=== PATIENT | female | born 1980 | race Caucasian/White ===

== ENCOUNTER 2017-01-12 21:01 | Emergency (ER) | payer OTHER ==
[2017-01-12 21:13] VITALS: BP 120/71
--- NOTE | 2017-01-12 21:18 | UC ---
Throat Pain/Nasal Brett HPI - HPI Summary HPI Summary: headache sore throat and ear pain, exudates on left tonsil - History of Current Complaint Chief Complaint: UCGeneralIllness Stated Complaint: HEADACHE,SORE THROAT,EAR PAIN Time Seen by Provider: 01/12/17 21:14 Hx Obtained From: Patient Hx Last Menstrual Period: 12/30/16 ?: No Onset/Duration: Sudden Onset, Lasting Days, Still Present Severity: Moderate Pain Intensity: 8 Pain Scale Used: 0-10 Numeric Cough: None Associated Signs & Symptoms: Positive: Negative - Allergies/Home Medications Allergies/Adverse Reactions: Allergies Allergy/AdvReac Type Severity Reaction Status Date / Time Levofloxacin [From Levaquin] Allergy See Comment Verified 01/12/17 21:13 Home Medications: Home Medications Ibuprofen TAB* [Advil TAB*] 400 mg PO Q6H PRN 01/12/17 [History Confirmed ] Naltrexone HCl-Bupropion HCl [Contrave] 2 tab PO DAILY 01/12/17 [History Confirmed 01/12/17] PMH/Surg Hx/FS Hx/Imm Hx Previously Healthy: Yes Other History Of: Negative For: HIV, Hepatitis B, Hepatitis C, Anticoagulant Therapy - Surgical History Surgical History: Yes Surgery Procedure, Year, and Place: sinus surgery, x2 - Family History Known Family History: Positive: Cardiac Disease, Hypertension, Diabetes - Social History Occupation: Employed Full-time Lives: With Family Alcohol Use: Occasionally Substance Use Type: None Smoking Status (MU): Former Smoker When Did the Patient Quit Smoking/Using Tobacco: 2011 Review of Systems Constitutional: Negative Skin: Negative Eyes: Negative ENT: Sore Throat, Ear Ache Respiratory: Negative Cardiovascular: Negative Gastrointestinal: Negative Genitourinary: Negative Motor: Negative Neurovascular: Negative Musculoskeletal: Negative Neurological: Negative Psychological: Negative All Other Systems Reviewed And Are Negative: Yes Physical Exam Triage Information Reviewed: Yes Appearance: Well-Appearing, No Pain Distress, Well-Nourished Vital Signs: Initial Vital Signs Temp 98.7 F 01/12/17 21:09 Pulse 78 01/12/17 21:09 Resp 16 01/12/17 21:09 BP 120/71 01/12/17 21:09 Pulse Ox 100 01/12/17 21:09 Vital Signs Reviewed: Yes Eye Exam: Normal Eyes: Positive: Conjunctiva Clear ENT Exam: Normal ENT: Positive: Normal ENT inspection, Hearing grossly normal, Pharynx normal, Nasal congestion, Nasal drainage, TMs normal, Tonsillar exudate Dental Exam: Normal Neck exam: Normal Neck: Positive: Supple, Nontender, No Lymphadenopathy Respiratory Exam: Normal Respiratory: Positive: Chest non-tender, Lungs clear, Normal breath sounds, No respiratory distress, No accessory muscle use Cardiovascular Exam: Normal Cardiovascular: Positive: RRR, No Murmur, Pulses Normal, Brisk Capillary Refill Musculoskeletal Exam: Normal Musculoskeletal: Positive: Strength Intact, ROM Intact, No Edema Neurological Exam: Normal Neurological: Positive: Alert, Muscle Tone Normal Psychological Exam: Normal Skin Exam: Normal Throat Pain/Nasal Course/Dx - Course Assessment/Plan: otc medication for sx relief rest increase fluids, follow with pcp - Differential Dx/Diagnosis Differential Diagnosis/HQI/PQRI: Otitis Media, Pharyngitis, Sinusitis, URI Provider Diagnoses: viral illness, exudative pharyngitis Discharge - Discharge Plan Condition: Stable Disposition: HOME Patient Education Materials: Ibuprofen (By mouth), Viral Syndrome (ED) Forms: *Work Release Referrals: [facility] [place] [facility] [place] [facility] [Outside] - If Needed
[2017-01-12] MEDS ORDERED: HYDROcodone/ACETAMIN 5-325 MG* 1 TAB PO ONE (21:43)
== END 2017-01-12 21:58 | disposition home or self-care (01) ==
LOC: UCCORT 21:01
DX: R51 Headache (principal); J02.9 Acute pharyngitis, unspecified; H92.09 Otalgia, unspecified ear; Z87.891 Personal history of nicotine dependence
CPT/HCPCS: 87651; 99212; G0463

== ENCOUNTER 2017-07-19 09:11 | Emergency (ER) | payer OTHER ==
[2017-07-19 09:39] VITALS: BP 132/72
--- OUTSIDE RECORDS SUMMARY | 2017-07-19 09:39 | XMS REPORT ---
:1980 External Reference #:[id number] Author Organization [facility] Address [address] [address] Phone [phone] Care Team Providers Name Role Phone Dylan Groves M.D. Primary Care Physician Unavailable Payers Type Date Identification Numbers Payment Provider Subscriber Commercial Effective: Policy Number: [facility] Zackery Don 2015 [id number] [place] PayID: [id number] [address] [place] [address] Medigap Part B Effective: 2013 Policy Number: Medicaid [place] Mabel Don [id number] Expires: 2017 Group Name: 1 1 [address] PayID: [id number] [place] [address] Commercial Effective: 2008 Policy Number: [facility] Mabel Don [id number] Expires: 2009 PayID: [id number] [address] [place] [address] Problems Date Description Provider Status Onset: 08/14/2015 High risk In Karl Groves M.D. 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 Abuse No history of abuse Cigarette Use Quit ETOH Use Denies alcohol use Recreational Drug Use Denies Drug Use Smoking Patient is a former smoker Smoking Quit 07-15 Daily Caffeine Consumes on average 1 liter of soda per day Tattoo/Piercing Tattoo Tattoo/Piercing X5 Tattoo/Piercing Pierced ears Tattoo/Piercing Pierced nasal area # Partners in a Lifetime over 10 STD's HPV Allergies, Adverse Reactions, Alerts Date Description Reaction Status Severity Comments 07/15/2011 Levaquin "get really depressed" active 08/09/2013 Adhesives active Medications Medication Date Status Form Strength Qnty SIG Indications Ordering Provider Prozac Active Capsules 20mg 30caps 1 tab by In [facility] 015 mouth Oh, M.DNomi every day 30 Metrogel-Vagi Hx Gel 0.75% 5night use in [place], nal 017 s vagina for Monica 5 nights , CNM Keflex Hx Capsules 500mg 28caps 1 by mouth L02.215 [place], 017 four times Monica a day , CNM Hx Capsules 27-0.8-228m 30caps 1 by mouth In [facility] Multi +Dha 016 - g every day Oh MNomiDNomi 017 Feosol Hx Tablets 325(65Fe) 90tabs 1 by mouth In [facility] 016 mg every day Oh, M.DNomi . Flagyl Hx Tablets 500mg 14tabs 1 by mouth [place], 015 twice a Monica day , CNM 1 Hx Capsules 30-0.975-20 90caps take one [place], 015 0mg every day Monica , CNM Prozac Hx Capsules 40mg 30caps 1 by mouth In [facility] 015 every day Oh MNomiDNomi Diflucan Hx Tablets 150mg 1tabs 1 by mouth In [facility] 014 every day Oh MNomiD. Prozac Hx Capsules 40mg 30caps 1 po qd In [facility] 014 Germain MBel Prozac Hx Capsules 20mg 60caps 2 po qd In [facility] 014 Oh, M.D. Prozac Hx Capsules 20mg 125cap 1-2 po qd In [facility] 013 - Wy, M.DNomi 014 Zithromax Hx Tablets 250mg 1pak 2 tab on In [facility] Z-Kasi Wy, M.DNomi and 1 tab day2-5 Metrogel-Vagi Hx Gel 0.75[facility] Monica [facility] , [facility] 013 Diflucan Hx Tablets 150mg 2tabs 1 po qd 616.10 [place], 013 - and in 4 Monica days take , CN 013 another pill Prozac Hx Capsules 40mg In [facility] 013 [facility], M.DNomi 013 Prozac Hx Capsules 20mg 90caps 1 po qd, In [facility] November Wy M.DNomi increase 014 to 1am and 1pm daily after 2 weeks if needed. Patito Hx Tablets 0.35mg 90tabs 1 po qd V25.[address] M.DNomi 013 Zoloft Hx Tablets 50mg 90tabs 1 po qd 300.[address] M.DNomi 012 Ferrousul Hx Tablets 325(65Fe) 30tabs take one [place], 012 - mg every day Monica , CNM 012 Zofran Hx Tablets 8mg 20tabs 1 tab by In [facility] 012 - mouth Wy, M.D. three 012 times a day as needed 0000/0 Hx Unknown Vitamins 000 - 013 Ferrousul 00/0 Hx Unknown 000 - 013 Magnesium Hx Unknown 000 Medications Administered in Office Medication Date Status Form Strength Qnty SIG Indications Ordering Provider Subcutaneous Or Injection [place], Intramuscular 2015 Monica Injection , CNM Immunizations CPT Code Status Date Vaccine Reaction Lot # [id number] Given 11/11/2015 tetanus, diptheria, acellular pertussis / [id number] over 7 years/intra mus 57535 Given 06/21/2012 Influenza Virus Split 3 Yrs And Above Dosage 08952 Given 06/21/2012 Influenza Virus Split 3 Yrs And Above natalie well [id number] Dosage 26926 Given 05/26/2009 H1N1 Pandemic Flu Vaccine 16768 Given 05/26/2009 H1N1 Immunication Administration 66972 Given 04/17/2009 Influenza Virus Split 3 Yrs And Above Dosage 42894 Given 04/30/2008 Influenza Virus Split 3 Yrs And Above Dosage 58130 Given 05/24/2005 Influenza Virus Split 3 Yrs And Above Dosage 95289 Given 05/29/2003 Influenza Virus Whole 35089 Given 05/16/2002 Influenza Virus Split 3 Yrs And Above Dosage Vital Signs Date Vital Result Comment 06/24/2017 Height 65 inches 5'5" Weight 220.00 lb BP Systolic 122 mmHg BP Diastolic 60 mmHg BMI (Body Mass Index) 36.6 kg/m2 09/21/2016 Height 65 inches 5'5" Weight 219.00 lb BP Systolic 120 mmHg BP Diastolic 60 mmHg BMI (Body Mass Index) 36.4 kg/m2 07/21/2016 Height 65 inches 5'5" Weight 226.00 lb BP Systolic 120 mmHg BP Diastolic 60 mmHg BMI (Body Mass Index) 37.6 kg/m2 03/19/2016 Height 65 inches 5'5" Weight 210.00 lb BP Systolic 128 mmHg BP Diastolic 68 mmHg BMI (Body Mass Index) 34.9 kg/m2 02/11/2016 Height 65 inches 5'5" Weight 213.00 lb BP Systolic 120 mmHg BP Diastolic 68 mmHg BMI (Body Mass Index) 35.4 kg/m2 12/29/2015 Height 65 inches 5'5" Weight 213.00 lb BP Systolic 120 mmHg BP Diastolic 60 mmHg BMI (Body Mass Index) 35.4 kg/m2 12/12/2015 Height 65 inches 5'5" Weight 235.00 lb BP Systolic 120 mmHg BP Diastolic 60 mmHg BMI (Body Mass Index) 39.1 kg/m2 12/03/2015 Height 65 inches 5'5" Weight 229.00 lb BP Systolic 120 mmHg BP Diastolic 70 mmHg BMI (Body Mass Index) 38.1 kg/m2 11/26/2015 Height 65 inches 5'5" Weight 230.00 lb BP Systolic 110 mmHg BP Diastolic 68 mmHg BMI (Body Mass Index) 38.3 kg/m2 11/11/2015 Height 65 inches 5'5" Weight 226.00 lb BP Systolic 120 mmHg BP Diastolic 56 mmHg BMI (Body Mass Index) 37.6 kg/m2 10/29/2015 Height 65 inches 5'5" Weight 220.00 lb BP Systolic 110 mmHg BP Diastolic 60 mmHg BMI (Body Mass Index) 36.6 kg/m2 10/09/2015 Height 65 inches 5'5" Weight 218.00 lb BP Systolic 110 mmHg BP Diastolic 60 mmHg BMI (Body Mass Index) 36.3 kg/m2 09/11/2015 Height 65 inches 5'5" Weight 222.00 lb BP Systolic 120 mmHg BP Diastolic 60 mmHg BMI (Body Mass Index) 36.9 kg/m2 08/14/2015 Height 65 inches 5'5" Weight 216.00 lb BP Systolic 120 mmHg BP Diastolic 64 mmHg BMI (Body Mass Index) 35.9 kg/m2 07/17/2015 Height 65 inches 5'5" Weight 210.00 lb BP Systolic 120 mmHg BP Diastolic 60 mmHg BMI (Body Mass Index) 34.9 kg/m2 06/16/2015 Height 55 inches 4'7" Weight 205.00 lb BP Systolic 110 mmHg BP Diastolic 70 mmHg BMI (Body Mass Index) 47.6 kg/m2 05/29/2015 Height 55 inches 4'7" Weight 206.00 lb BP Systolic 120 mmHg BP Diastolic 70 mmHg BMI (Body Mass Index) 47.9 kg/m2 04/21/2015 Height 65 inches 5'5" Weight 203.00 lb BP Systolic 122 mmHg BP Diastolic 66 mmHg BMI (Body Mass Index) 33.8 kg/m2 04/21/2015 Height 55 inches 4'7" Weight 201.00 lb BP Systolic 120 mmHg BP Diastolic 66 mmHg BMI (Body Mass Index) 46.7 kg/m2 04/21/2015 Height 55 inches 4'7" Weight 201.00 lb BP Systolic 122 mmHg BP Diastolic 58 mmHg BMI (Body Mass Index) 46.7 kg/m2 09/26/2014 Height 64.25 inches 5'4.25" Weight 170.00 lb BP Systolic 120 mmHg BP Diastolic 60 mmHg BMI (Body Mass Index) 29.0 kg/m2 02/28/2014 Height 65 inches 5'5" per pt. Weight 165.00 lb BP Systolic 110 mmHg BP Diastolic 70 mmHg BMI (Body Mass Index) 27.5 kg/m2 02/12/2014 Height 65 inches 5'5" per pt. Weight 170.00 lb BP Systolic 110 mmHg BP Diastolic 68 mmHg BMI (Body Mass Index) 28.3 kg/m2 08/09/2013 Height 65 inches 5'5" per pt. Weight 197.00 lb per pt. BP Systolic 104 mmHg BP Diastolic 68 mmHg BMI (Body Mass Index) 32.8 kg/m2 05/31/2013 Height 65 inches 5'5" per pt. Weight 195.00 lb BP Systolic 120 mmHg BP Diastolic 60 mmHg BMI (Body Mass Index) 32.4 kg/m2 01/26/2013 Height 65 inches 5'5" per pt. BP Systolic 110 mmHg BP Diastolic 56 mmHg Heart Rate 60 /min 05/30/2012 BP Systolic 130 mmHg BP Diastolic 70 mmHg 04/28/2012 Height 64 inches 5'4" Weight 194.00 lb BP Systolic 124 mmHg BP Diastolic 72 mmHg BMI (Body Mass Index) 33.3 kg/m2 03/24/2012 Height 64 inches 5'4" Weight 191.00 lb BP Systolic 120 mmHg BP Diastolic 60 mmHg BMI (Body Mass Index) 32.8 kg/m2 07/15/2011 Height 65 inches 5'5" Weight 189.00 lb BP Systolic 148 mmHg BP Diastolic 80 mmHg BMI (Body Mass Index) 31.4 kg/m2 Results Test Date Test Result H/L Range Note Laboratory test 07/21/2016 Culture Genital SEE RESULT 1 finding & Sensitivity BELOW Laboratory test 12/23/2015 Urine Culture See Note 2 finding CBC 12/18/2015 White Blood Count 11.4 K/uL High 3.1-10.7 Red Blood Count 3.70 M/uL Low 3.90-5.40 Hemoglobin 10.9 gm/dL Low 11.6-15.8 Hematocrit 33.0 % Low 36.0-46.1 Mean Cell Volume 89.2 fl 80.9-99.0 Mean Corpuscular HGB 29.5 pg 25.9-32.7 Mean Corpuscular HGB Conc 33.0 g/dL 30.8-34.3 Platelet Count 177 K/uL 155-360 Red Cell Distri Width %CV 14.8 % High 11.7-14.4 Mean Platelet Volume 11.7 fL 8.9-12.4 CBC 12/16/2015 White Blood Count 10.0 K/uL 3.1-10.7 Red Blood Count 3.92 M/uL 3.90-5.40 Hemoglobin 11.6 gm/dL 11.6-15.8 Hematocrit 34.7 % Low 36.0-46.1 Mean Cell Volume 88.5 fl 80.9-99.0 Mean Corpuscular HGB 29.6 pg 25.9-32.7 Mean Corpuscular HGB Conc 33.4 g/dL 30.8-34.3 Platelet Count 167 K/uL 155-360 Red Cell Distri Width %CV 14.6 % High 11.7-14.4 Mean Platelet Volume 11.7 fL 8.9-12.4 Urinalysis With Microscopic 12/16/2015 Urine Color YELLOW Yellow Urine Clarity CLEAR Clear Urine Glucose - Dipstick NEGATIVE mg/dL Negative Urine Bilirubin - Dipstick NEGATIVE Negative Urine Ketone NEGATIVE mg/dL Negative Urine Specific Demorest 1.020 1.010-1.030 Urine Blood NEGATIVE Negative Urine PH 6.0 Low 6.5-7.5 Urine Protein - Dipstick NEGATIVE mg/dL Negative Urine Urobilinogen - Dipstick 0.2 E.U./dL 0.2-1.0 Urine Nitrite - Dipstick NEGATIVE Negative Urine Leuk Esterase SMALL High Negative Urine RBC NONE SEEN rbc/hpf 0-2 Urine WBC 2-5 wbc/hpf 0-7 Urine Epithelial Cells FEW NONESEEN/lpf Urine Bacteria VERY FEW NONESEEN Urine Amorph Sediment VERY FEW Negative Type And Screen 12/16/2015 Patient Blood Type O POS Antibody Screen Negative Negative Laboratory test finding 12/16/2015 Treponema Antibody Nonreactive Nonreactive 3 Somis Ua RFX Micro + Culture II See Note 4 Genital Culture W/ Gram Stain 10/09/2015 Gram Stain See Note 5 Genital Culture See Note 6 Ua RFX Micro + Culture II 10/09/2015 Urine Color YELLOW Yellow Urine Clarity SL CLOUDY Clear Urine Glucose - Dipstick NEGATIVE mg/dL Negative Urine Bilirubin - Dipstick NEGATIVE Negative Urine Ketone NEGATIVE mg/dL Negative Urine Specific [place] 1.025 1.010-1.030 Urine Blood NEGATIVE Negative Urine PH 6.0 Low 6.5-7.5 Urine Protein - Dipstick NEGATIVE mg/dL Negative Urine Urobilinogen - Dipstick 0.2 E.U./dL 0.2-1.0 Urine Nitrite - Dipstick NEGATIVE Negative Urine Leuk Esterase NEGATIVE Negative Laboratory test finding 10/09/2015 Urine Culture See Note 7 Hemoglobin/Hematocrit 10/09/2015 Hemoglobin 10.8 gm/dL Low 11.6-15.8 Hematocrit 33.4 % Low 36.0-46.1 Glucose,1 HR Post Glucola 10/09/2015 1 HR Glucose,Post Glucola 100 mg/dL -138 8 1 Hour Urine Glucose NEGATIVE % Negative 1 Hour Urine Ketone NEGATIVE Negative Afp,Tetra Profile 07/17/2015 Afp Tetra [id number] Basic Metabolic Panel 07/08/2015 Glucose 103 mg/dL 74-106 BUN 5 mg/dL Low 7-18 Creatinine 0.5 mg/dL Low 0.6-1.3 Glom Filtration Rate, Estimate >60 mL/min >60 If >60 mL/min >60 10 BUN/Creat 10.0 ratio Sodium 139 mmol/L 136-145 Potassium 3.5 mmol/L 3.5-5.1 Chloride 104 mmol/L 98-107 Carbon Dioxide 28 mmol/L 21-32 Anion Gap 7 mEq/L Low 8-16 Calcium 8.4 mg/dL Low 8.5-10.1 Laboratory test finding 07/08/2015 Magnesium 2.0 mg/dL 1.8-2.4 Chlamydia/GC Amplification 04/28/2015 Chlamydia Trachomatis, Negative Negative Rachel Neisseria Gonorrhoeae, Rachel Negative Negative Please note: See Note 11 Genital Culture W/ Gram Stain 04/28/2015 Gram Stain See Note 12 Genital Culture See Note 13 Laboratory test finding 04/28/2015 Throat Culture Complete See Note 14 Laboratory test finding 04/21/2015 Urine Culture See Note 15 Urinalysis With Microscopic 04/21/2015 Urine Color YELLOW Yellow Urine Clarity CLEAR Clear Urine Glucose - Dipstick NEGATIVE mg/dL Negative Urine Bilirubin - Dipstick NEGATIVE Negative Urine Ketone NEGATIVE mg/dL Negative Urine Specific Demorest 1.010 1.010-1.030 Urine Blood TRACE Negative Urine PH 6.0 Low 6.5-7.5 Urine Protein - Dipstick NEGATIVE mg/dL Negative Urine Urobilinogen - Dipstick 0.2 E.U./dL 0.2-1.0 Urine Nitrite - Dipstick NEGATIVE Negative Urine Leuk Esterase NEGATIVE Negative Urine RBC 0-2 rbc/hpf 0-2 Urine WBC NONE SEEN wbc/hpf 0-7 Urine Epithelial Cells FEW NONESEEN/lpf Urine Bacteria VERY FEW NONESEEN Type And Screen 04/21/2015 Patient Blood Type O POS Antibody Screen Negative Negative CBS W/Automated Diff 04/21/2015 White Blood Count 7.4 K/uL 3.1-10.7 Red Blood Count 4.38 M/uL 3.90-5.40 Hemoglobin 13.3 gm/dL 11.6-15.8 Hematocrit 40.2 % 36.0-46.1 Mean Cell Volume 91.8 fl 80.9-99.0 Mean Corpuscular HGB 30.4 pg 25.9-32.7 Mean Corpuscular HGB Conc 33.1 g/dL 30.8-34.3 Platelet Count 242 K/uL 155-360 Red Cell Distri Width SD 42.7 fl 3-47 Red Cell Distri Width %CV 13.0 % 11.7-14.4 Mean Platelet Volume 11.2 fL 8.9-12.4 Neut% 71.7 % 40.4-72.8 Lymph % 21.1 % 17.0-46.1 Wilkes % 5.8 % 4.3-13.2 Eo% 0.9 % 0.0-6.6 Bas% 0.5 % 0.0-1.1 Neut# 5.28 K/uL 1.0-7.0 Lymph # 1.56 K/uL Low 1.8-7.0 Wilkes # 0.43 K/uL 0.3-0.9 Eos # 0.07 K/uL 0.0-0.5 Baso # 0.04 K/uL 0.0-0.1 Laboratory test finding 04/21/2015 Lead,Blood (Adult) 1 g/dL 0-19 16 Varicella-Zoster Virus IgG Ab 361 Immune>165ind 17 Antibody Detection See Note 18 Rubella IgG Antibody 04/21/2015 Rubella IgG Antibody Reactive Reactive Rubella IgG Iu/ml 154.8 IU/mL >=10.0 19 Laboratory test finding 04/21/2015 Hepatitis B Surface Nonreactive Nonreactive 20 Antigen Rapid Plasma Reagin NONREACTIVE NONREACTIVE 21 Laboratory test 04/17/2015 HCG,Serum POSITIVE High (Negative) 22 finding (Qualitative) Pap Plus HPV 09/26/2014 [facility] HR- 23 Laboratory test 02/22/2014 Rapid Plasma Reagin NONREACTIVE 24 finding NONREACTIVE Hepatitis 02/22/2014 Hepatitis A Antibody Nonreactive 25 Evaluation IgM Nonreactive Hepatitis B Surface Antigen Nonreactive Nonreactive 26 Hepatitis B Core IgM Nonreactive Nonreactive 27 Hepatitis C Antibody Nonreactive Nonreactive Signal/Cutoff ratio < 0.02 <0.80 28 Laboratory test 02/22/2014 HSV II,Igg,Type <0.91 index 0.00-0.90 29 finding Specific Antibody Detection See Note 30 Pap Plus HPV 02/12/2014 [facility] HPV HR- 31 Laboratory test 10/19/2013 Thyroid Stim Hormone 0.95 uIU/mL 0.49-4.67 finding Laboratory test 08/09/2013 Lyme AB/Total < 0.91 0.00-0.90 32 finding Immunoglobulins index LDL Cholesterol 08/09/2013 Cholesterol 134 mg/dL 120-200 Profile Triglycerides 81 mg/dL 16-231 HDL Cholesterol 43 mg/dL 29-83 LDL-Cholesterol 75 mg/dL 62-185 Comprehensive Metabolic Panel 08/09/2013 Glucose 83 mg/dL 76-115 BUN 13 mg/dL 5-23 Creatinine 0.9 mg/dL 0.5-1.4 Glom Filtration Rate, Estimate >60 mL/min >60 If >60 mL/min >60 33 BUN/Creat 14.4 ratio Sodium 137 mmol/L 136-145 Potassium 3.9 mmol/L 3.5-5.1 Chloride 103 mmol/L 98-107 Carbon Dioxide 28 mEq/L 18-29 Anion Gap 10 mEq/L 8-16 Calcium 8.8 mg/dL 8.5-10.1 Total Protein 7.2 g/dL 6.3-8.0 Albumin 4.0 g/dL 3.5-5.0 Globulin 3.2 g/dL 1.9-4.3 Alb/Glob 1.3 ratio Bilirubin,Total 0.5 mg/dL 0.2-1.2 Sgot/Ast 13 U/L Low 16-40 SGPT/Alt 17 U/L Low 30-65 Alkaline Phosphatase 59 U/L 50-136 CBC W/Automated Diff 08/09/2013 White Blood Count 7.7 K/uL 3.1-10.7 Red Blood Count 4.60 M/uL 3.90-5.40 Hemoglobin 13.3 gm/dL 11.6-15.8 Hematocrit 39.6 % 36.0-46.1 Mean Cell Volume 86.1 fl 80.9-99.0 Mean Corpuscular HGB 28.9 pg 25.9-32.7 Mean Corpuscular HGB Conc 33.6 g/dL 30.8-34.3 Platelet Count 267 K/uL 155-360 Red Cell Distri Width SD 41.3 fl 3-47 Red Cell Distri Width %CV 13.5 % 11.7-14.4 Mean Platelet Volume 10.7 fL 8.9-12.4 Neut% 68.2 % 40.4-72.8 Lymph % 23.7 % 17.0-46.1 Wilkes % 5.7 % 4.3-13.2 Eo% 1.6 % 0.0-6.6 Bas% 0.8 % 0.0-1.1 Neut# 5.27 K/uL 1.0-7.0 Lymph # 1.83 K/uL 0.8-3.4 Wilkes # 0.44 K/uL 0.3-0.9 Eos # 0.12 K/uL 0.0-0.5 Baso # 0.06 K/uL 0.0-0.1 Laboratory test finding 08/09/2013 Free T4 1.18 ng/dL 0.71-1.85 34 Thyroid Stim Hormone 1.05 uIU/mL 0.49-4.67 35 Glycohemoglobin A1c 08/09/2013 Glycohemoglobin (A1c) 4.8 % 4.8-6.0 36 eAG 91 mg/dL Laboratory test finding 08/09/2013 Antinuclear Antibodies, Negative . 37 [facility] Comprehensive Metabolic 07/04/2013 Glucose 89 mg/dL 76-115 Panel BUN 17 mg/dL 5-23 Creatinine 1.1 mg/dL 0.5-1.4 Glom Filtration Rate, Estimate >60 mL/min >60 If >60 mL/min >60 38 BUN/Creat 15.4 ratio Sodium 143 mmol/L 136-145 Potassium 3.6 mmol/L 3.5-5.1 Chloride 107 mmol/L 98-107 Carbon Dioxide 29 mEq/L 18-29 Anion Gap 11 mEq/L 8-16 Calcium 8.7 mg/dL 8.5-10.1 Total Protein 6.2 g/dL Low 6.3-8.0 Albumin 3.7 g/dL 3.5-5.0 Globulin 2.5 g/dL 1.9-4.3 Alb/Glob 1.5 ratio Bilirubin,Total 0.2 mg/dL 0.2-1.2 Sgot/Ast 13 U/L Low 16-40 SGPT/Alt 18 U/L Low 30-65 Alkaline Phosphatase 74 U/L 50-136 CBC W/Automated Diff 07/04/2013 White Blood Count 10.7 K/uL 3.1-10.7 Red Blood Count 4.42 M/uL 3.90-5.40 Hemoglobin 12.6 gm/dL 11.6-15.8 Hematocrit 38.3 % 36.0-46.1 Mean Cell Volume 86.7 fl 80.9-99.0 Mean Corpuscular HGB 28.5 pg 25.9-32.7 Mean Corpuscular HGB Conc 32.9 g/dL 30.8-34.3 Platelet Count 266 K/uL 155-360 Red Cell Distri Width SD 40.9 fl 3-47 Red Cell Distri Width %CV 13.3 % 11.7-14.4 Mean Platelet Volume 10.7 fL 8.9-12.4 Neut% 65.7 % 40.4-72.8 Lymph % 26.1 % 17.0-46.1 Wilkes % 5.5 % 4.3-13.2 Eo% 2.1 % 0.0-6.6 Bas% 0.6 % 0.0-1.1 Neut# 7.06 K/uL High 1.0-7.0 Lymph # 2.80 K/uL 0.8-3.4 Wilkes # 0.59 K/uL 0.3-0.9 Eos # 0.22 K/uL 0.0-0.5 Baso # 0.06 K/uL 0.0-0.1 Laboratory test finding 01/26/2013 Urine Culture See Note 39 Genital Culture W/ Gram Stain 01/26/2013 Gram Stain See Note 40 Genital Culture See Note 41 Affirm Test 01/26/2013 Gardnerella vaginalis See Note 42 Trichomonas vaginalis See Note 43 Natalia species See Note 44 CBC 03/08/2012 White Blood Count 11.0 K/uL High 3.1-10.7 Red Blood Count 3.18 M/uL Low 3.90-5.40 Hemoglobin 9.0 gm/dL Low 11.6-15.8 Hematocrit 28.0 % Low 36.0-46.1 Mean Cell Volume 88.1 fl 80.9-99.0 Mean Corpuscular HGB 28.3 pg 25.9-32.7 Mean Corpuscular HGB Conc 32.1 g/dL 30.8-34.3 Platelet Count 163 K/uL 155-360 Red Cell Distri Width %CV 14.7 % High 11.7-14.4 Mean Platelet Volume 12.8 fL High 8.9-12.4 Laboratory test finding 03/07/2012 Placenta, Third See Note 45 Trimester CBC 03/06/2012 White Blood Count 13.3 K/uL High 3.1-10.7 Red Blood Count 3.97 M/uL 3.90-5.40 Hemoglobin 11.0 gm/dL Low 11.6-15.8 Hematocrit 33.8 % Low 36.0-46.1 Mean Cell Volume 85.1 fl 80.9-99.0 Mean Corpuscular HGB 27.7 pg 25.9-32.7 Mean Corpuscular HGB Conc 32.5 g/dL 30.8-34.3 Platelet Count 201 K/uL 155-360 Red Cell Distri Width %CV 14.7 % High 11.7-14.4 Mean Platelet Volume 12.5 fL High 8.9-12.4 Laboratory test finding 03/06/2012 Rapid Plasma Reagin NONREACTIVE NONREACTIVE 46 Type And Screen 03/06/2012 Patient Blood Type O POS Antibody Screen NEGATIVE Laboratory test finding 02/10/2012 Vaginal Strep Screen See Note 47 Urinalysis With Microscopic 01/30/2012 Urine Color YELLOW Yellow Urine Clarity CLEAR Clear Urine Glucose - Dipstick NEGATIVE mg/dL Negative Urine Bilirubin - Dipstick NEGATIVE Negative Urine Ketone NEGATIVE mg/dL Negative Urine Specific Demorest 1.025 1.010-1.030 Urine Blood NEGATIVE Negative Urine PH 5.5 Low 6.5-7.5 Urine Protein - Dipstick NEGATIVE mg/dL Negative Urine Urobilinogen - Dipstick 0.2 E.U./dL 0.2-1.0 Urine Nitrite - Dipstick NEGATIVE Negative Urine Leuk Esterase SMALL High Negative Urine RBC NONE SEEN rbc/hpf 0-7 Urine WBC 2-5 wbc/hpf 0-7 Urine Epithelial Cells FEW NONESEEN Urine Bacteria FEW NONESEEN Laboratory test finding 01/30/2012 Urine Screen See Note 48 Laboratory test finding 12/08/2011 Urine Culture See Note 49 Glucose 130 mg/dL High 76-115 50 Urinalysis With Microscopic 12/08/2011 Urine Color YELLOW Yellow Urine Clarity SL CLOUDY Clear Urine Glucose - Dipstick NEGATIVE mg/dL Negative Urine Bilirubin - Dipstick NEGATIVE Negative Urine Ketone NEGATIVE mg/dL Negative Urine Specific [place] 1.010 1.010-1.030 Urine Blood NEGATIVE Negative Urine PH 7.0 6.5-7.5 Urine Protein - Dipstick NEGATIVE mg/dL Negative Urine Urobilinogen - Dipstick 0.2 E.U./dL 0.2-1.0 Urine Nitrite - Dipstick NEGATIVE Negative Urine Leuk Esterase TRACE High Negative Urine RBC 0-2 rbc/hpf 0-7 Urine WBC 5-7 wbc/hpf 0-7 Urine Epithelial Cells MODERATE NONESEEN 51 Urine Bacteria VERY FEW NONESEEN Laboratory test finding 12/08/2011 Hemoglobin 10.8 gm/dL Low 11.6-15.8 Laboratory test finding 11/10/2011 Urine Culture See Note 52 Urinalysis With Microscopic 11/10/2011 Urine Color YELLOW Yellow Urine Clarity CLEAR Clear Urine Glucose - Dipstick NEGATIVE mg/dL Negative Urine Bilirubin - Dipstick NEGATIVE Negative Urine Ketone NEGATIVE mg/dL Negative Urine Specific [place] 1.015 1.010-1.030 Urine Blood NEGATIVE Negative Urine PH 6.0 Low 6.5-7.5 Urine Protein - Dipstick NEGATIVE mg/dL Negative Urine Urobilinogen - Dipstick 0.2 E.U./dL 0.2-1.0 Urine Nitrite - Dipstick NEGATIVE Negative Urine Leuk Esterase TRACE High Negative Urine RBC 0-2 rbc/hpf 0-7 Urine WBC 0-2 wbc/hpf 0-7 Urine Epithelial Cells MODERATE NONESEEN 53 Urine Bacteria FEW NONESEEN Laboratory test finding 09/23/2011 Afp,Tetra Profile REF#[id number] 54 Cystic Fibrosis,Dna Analysis See Note 55 Genital Culture W/ Gram Stain 08/03/2011 Gram Stain See Note 56 Genital Culture See Note 57 Dna Probe N. Gono + C. 08/03/2011 Dna Probe For Chlamydia Trac. See Note 58 Trach. Dna Probe For N. Gonorrhoeae See Note 59 Laboratory test finding 07/28/2011 Lead,Blood (Adult) 1 g/dL 0-19 60 Varicella-Zoster Virus IgG Ab 1.39 Immune>1.09i High 61 CBS W/Automated Diff 07/28/2011 White Blood Count 8.4 K/uL 3.1-10.7 Red Blood Count 4.42 M/uL 3.90-5.40 Hemoglobin 12.9 gm/dL 11.6-15.8 Hematocrit 39.4 % 36.0-46.1 Mean Cell Volume 89.1 fl 80.9-99.0 Mean Corpuscular HGB 29.2 pg 25.9-32.7 Mean Corpuscular HGB Conc 32.7 g/dL 30.8-34.3 Platelet Count 244 K/uL 155-360 Red Cell Distri Width SD 40.2 fl 3-47 Red Cell Distri Width %CV 12.6 % 11.7-14.4 Mean Platelet Volume 11.3 fL 8.9-12.4 Neut% 72.2 % 40.4-72.8 Lymph % 19.5 % 17.0-46.1 Wilkes % 5.8 % 4.3-13.2 Eo% 2.0 % 0.0-6.6 Bas% 0.5 % 0.0-1.1 Neut# 6.05 K/uL 1.0-7.0 Lymph # 1.63 K/uL 0.8-3.4 Wilkes # 0.49 K/uL 0.3-0.9 Eos # 0.17 K/uL 0.0-0.5 Baso # 0.04 K/uL 0.0-0.1 Laboratory test finding 07/28/2011 Rapid Plasma Reagin NONREACTIVE NONREACTIVE 62 Hepatitis B Surface Antigen Nonreactive Nonreactive 63 Rubella IgG Antibody Reactive Reactive Rubella IgG Iu/ml 85.5 IU/mL >=10.0 64 Urine Screen See Note 65 Urine Culture See Note 66 Type And Screen 07/28/2011 Patient Blood Type O POS Antibody Screen NEGATIVE Urinalysis With Microscopic 07/28/2011 Urine Color YELLOW Yellow Urine Clarity SL CLOUDY Clear Urine Glucose - Dipstick NEGATIVE mg/dL Negative Urine Bilirubin - Dipstick NEGATIVE Negative Urine Ketone NEGATIVE mg/dL Negative Urine Specific [place] 1.020 1.010-1.030 Urine Blood NEGATIVE Negative Urine PH 7.0 6.5-7.5 Urine Protein - Dipstick TRACE mg/dL Negative Urine Urobilinogen - Dipstick 0.2 E.U./dL 0.2-1.0 Urine Nitrite - Dipstick NEGATIVE Negative Urine Leuk Esterase SMALL High Negative Urine RBC 5-7 rbc/hpf 0-7 Urine WBC 7-10 wbc/hpf High 0-7 Urine Epithelial Cells MODERATE NONESEEN 67 Urine Amorph Sediment SMALL Negative Laboratory test finding 07/14/2011 HCG, Quant 05052.0 mIU/mL 68 1 SEE RESULT BELOW Name: MABEL DON : [address]: Monica James CNM Acct: [id number] Unit: [id number] AGE: 35 Location: [facility] Re07/21/16 SEX: F Status: REG REF SPEC: [id number] CHIN: 07/21/16 [facility] DR: Monica James CNM REQ: [id number] RECD: 07/21/16 STATUS: COMP _ SOURCE: CERVIX SPDESC: ORDERED: Genital Culture COMMENTS: [id number] Procedure Result Reported Site Genital Culture Final 07/24/16- 1151 ML Organism 1 GARDNERELLA VAGINALIS Quantity 2+ Organism 2 NORMAL BETTY Quantity 1+ Routine genital cultures do not include selective agar for Neisseria gonorrhoeae. Molecular testing offers better test sensitivity and therefore is the preferred test methodology for identifying this organism. * ML - [facility] ([facility]) . END OF REPORT * ML=Testing performed at Main Lab DEPARTMENT OF PATHOLOGY, [address] [place] [address] Everton Pendleton M.D. Director [facility] # [id number] 2 Organism 1 ! URETHRAL BETTY Quantity ! > 100,000 CFU/mL SPECIMEN IS A MIX OF GRAM POSITIVE ORGANISMS CONSISTENT WITH SKIN/VAGINAL CONTAMINATION. SUGGEST REPEAT SPECIMEN IF CLINICALLY INDICATED. 3 Please Note: A nonreactive test result does not exclude the possibility of exposure to, or infection with syphilis. T. pallidum antibodies may be undetectable in some stages of the infection and in some clinical conditions. 4 12/16/15 LAB.TOW Deleted by Reflex Group [facility] 5 GRAM STAIN ! GRAM STAIN INDETERMINANT FOR BACTERIAL VAGINOSIS ! FEW GRAM VARIABLE COCCOBACILLI ! FEW GR POS. BACILLI SUGGESTIVE OF LACTOBACILLUS SP. ! RARE WHITE BLOOD CELLS 6 GENITAL BETTY 7 Organism 1 ! URETHRAL BETTY Quantity ! 10,000 - 50,000 CFU/mL 8 POST GLUCOLA 9 FORWARDED TO REFERENCE LABORATORY. 10 Note: Persistent reduction for 3 months or more in an eGFR <60 mL/min/1.73 m2 defines CKD. Patients with eGFR values >/=60 mL/min/1.73 m2 may also have CKD if evidence of persistent proteinuria is present. The original MDRD equation for estimated GFR is not valid for patients less than 18 years of age. Additional information may be found at www.kdoqi.org. 11 A negative result for either C. trachomatis and/or N. gonorrhoeae does not preclued an infection because results are dependent on adequate specimen collection, absence of inhibitors, and sufficient DNA to be detected. 12 GRAM STAIN ! GRAM STAIN INDETERMINANT FOR BACTERIAL VAGINOSIS ! FEW GRAM VARIABLE COCCOBACILLI ! FEW GR POS. BACILLI SUGGESTIVE OF LACTOBACILLUS SP. ! RARE WHITE BLOOD CELLS ! 13 Organism 1 ! GARDNERELLA VAGINALIS Quantity ! MANY 14 NORMAL THROAT BETTY 15 Organism 1 ! URETHRAL BETTY Quantity ! 50,000 - 100,000 CFU/mL 16 Environmental Exposure: WHO Recommendation <20 Occupational Exposure: OSHA Lead Std 40 TATY 30 Detection Limit=1 17 Negative <135 Equivocal 135 - 165 Positive >165 A positive result generally indicates exposure to the pathogen or administration of specific immunoglobulins, but it is not indication of active infection or stage of disease. Performed at: RN - [facility] [address] [id number] Materials Inspector: Catalina Valentine MD, Phone: [phone] 18 No reportable results 19 Values >=10.0 IU/mL are positive for IgG antibodies to rubella virus and are considered IMMUNE. 20 HBsAg not detected; does not exclude the possibility of exposure to or early acute infections with HBV. 21 PENDING; TEST PERFORMED ON MONDAYS AND THURSDAYS 22 CALLED HCG TO AT 7373 04/17/15 by LAB.RAP 23 Interpretation: NEGATIVE FOR INTRAEPITHELIAL LESION OR MALIGNANCY. Specimen Adequacy: SATISFACTORY FOR EVALUATION. Additional Findings: ENDOCERVICAL/TRANSFORMATION ZONE PRESENT. Cytology Laboratory [address], [address] [place] [address] CYTOLOGY REPORT Name: Mabel Don : 1980 (Age: 34) Sex: F Location: [facility] Med Rec. # [id number] Date Collected: 09/26/2014 Billing #: [id number] Date Received: 09/26/2014 Requisition # [id number] Physician(s): VERONIQUE HONG RNC MSN WHNP Source of Specimen: ENDOCERVICAL/ECTOCERVICAL THIN PREP Clinical Information: Date of Last Menstrual Period: 08/31 lori Electronic Signature KIAH Lin (ASCP) Reported: 09/30/2014 [facility] [employer] [facility] HPV High Risk Date Ordered: 09/27/2014 Status: Signed Out Date Reported: 09/27/2014 High Risk NEGATIVE (HPV Types 16, 18, 31, 33, 35, 39, 45, 51, 52, 56, 58, 59, 66, 68) APTIMA Electronic Signature Dara Bower MT [facility] [employer] [facility] ICD-9 Code(s) V76.2 24 PENDING; TEST PERFORMED ON MONDAYS AND THURSDAYS 25 IgM antibodies to HAV not detected; does not exclude early acute or recovered HAV infection. 26 HBsAg not detected; does not exclude the possibility of exposure to or early acute infections with HBV. 27 IgM anti-HBc not detected. Does not exclude the possibility of exposure to or infection with HBV. 28 Antibodies to HCV not detected; does not exclude early acute HCV infection. 29 Negative <0.91 Equivocal 0.91 - 1.09 Positive >1.09 Note: Negative indicates no antibodies detected to HSV-2. Equivocal may suggest early infection. If clinically appropriate, retest at later date. Positive indicates antibodies detected to HSV-2. Performed at: RN - [facility] [address] [id number] Materials Inspector: Catalina Valentine MD, Phone: [phone] No reportable results 31 Cytology Laboratory [address] [place] [address], [address] [place] [address] CYTOLOGY REPORT Name: Mabel Don : 1980 (Age: 33) Sex: F Location: [facility]. # [id number] Date Collected: 02/12/2014 Billing #: [id number] Date Received: 02/12/2014 Requisition # [id number] Physician(s): VERONIQUE HONG RNC MSN WHNP Source of Specimen: ENDOCERVICAL/ECTOCERVICAL THIN PREP Clinical Information: Date of Last Menstrual Period: 02/07/2014 Interpretation: NEGATIVE FOR INTRAEPITHELIAL LESION OR MALIGNANCY. REACTIVE CELLULAR CHANGES ASSOCIATED WITH INFLAMMATION. Specimen Adequacy: SATISFACTORY FOR EVALUATION. Additional Findings: ENDOCERVICAL/TRANSFORMATION ZONE PRESENT. Electronic Signature Matheus Diana MD Reported: 02/14/2014 Also seen by: KIAH Lin (ASCP) [facility] [employer] [facility] HPV High Risk Date Ordered: 02/13/2014 Status: Signed Out Date Reported: 02/13/2014 High Risk NEGATIVE (HPV Types 16, 18, 31, 33, 35, 39, 45, 51, 52, 56, 58, 59, 66, 68) APTIMA Electronic Signature Dara Bower MT [facility] [employer] [facility] [employer] ICD-9 Code(s) V76.2 A; 616.9 32 Negative <0.91 Equivocal 0.91 - 1.09 Positive >1.09 Note: The CDC currently advises that Western blot testing be performed following all equivocal or positive EIA results. Final diagnosis should include appropriate clinical findings and a positive EIA which is also positive by Western blot. Performed at: RN - [facility] [address] [id number] Materials Inspector: Catalina Valentine MD, Phone: [phone] Note: Persistent reduction for 3 months or more in an eGFR <60 mL/min/1.73 m2 defines CKD. Patients with eGFR values >/=60 mL/min/1.73 m2 may also have CKD if evidence of persistent proteinuria is present. The original MDRD equation for estimated GFR is not valid for patients less than 18 years of age. Additional information may be found at www.kdoqi.org. 34 WITH INDIVIDIAL ANTIBODY TITERS IF POSITIVE 35 WITH INDIVIDIAL ANTIBODY TITERS IF POSITIVE 36 A1c value between 5.7% and 6.4% is considered at increased risk for diabetes. A1c value greater than 6.5 % is considered essentially diagnostic for Type II diabetes. Current guidelines recommend a treatment goal of <7% for diabetic patients. This method will measure glycosylated hemoglobin variants, HbS, HbG, HbH, HbWayne, HbC, HbE, etc. Other hemoglobin- opathies may give incorrect results with this test. 37 Negative <1:80 Borderline 1:80 Positive >1:80 Performed at: RN - [facility] [address] [id number] Materials Inspector: Catalina Valentine MD, Phone: [phone] 38 Note: Persistent reduction for 3 months or more in an eGFR <60 mL/min/1.73 m2 defines CKD. Patients with eGFR values >/=60 mL/min/1.73 m2 may also have CKD if evidence of persistent proteinuria is present. The original MDRD equation for estimated GFR is not valid for patients less than 18 years of age. Additional information may be found at www.kdoqi.org. 39 COLONY COUNT ! 5,000 - 10,000 CFU/ml Organism 1 ! MIXED URETHRAL BETTY 40 GRAM STAIN ! GRAM STAIN INDETERMINANT FOR BACTERIAL VAGINOSIS ! FEW GR POS. BACILLI SUGGESTIVE OF LACTOBACILLUS SP. ! FEW GRAM VARIABLE COCCOBACILLI 41 GENITAL BETTY 42 POSITIVE FOR GARDNERELLA VAGINALIS 43 NEGATIVE FOR TRICHOMONAS VAGINALIS 44 NEGATIVE FOR NATALIA SPECIES 45 OPERATION/PROCEDURE with male apgars 9-10 DIAGNOSIS: "PLACENTA": MEMBRANES, CORD, AND PLACENTA, WITHOUT SIGNIFICANT HISTOLOGIC ABNORMALITY. GUZMAN/rebekah GROSS The specimen is additionally labeled "PLACENTA". This contains an 555 g. ovoid placenta measuring 16.5 x 17.1 x 1.3 cm in overall dimensions. A three- vessel umbilical cord is 16.5 cm in length, with a uniform diameter of 2.0 cm. It is free of true or false knots and inserts 2.5 cm away from the nearest placental margin. The subchorionic vessels arborize in a normal distribution to supply the entire steel-bowens subchorionic surface. The membranes demonstrate a central rupture and are delicate and translucent without foul smell or discoloration. The maternal surface consists of beefy red cotyledons without significant adherent clot, calcification, nor infarction. Change Management Administrator sections are submitted within three cassettes. WS/clf MICROSCOPIC Sections show normal appearing chorionic villi with appropriate vascularity. Intervillous fibrin is of a mild amount. The cord has three vessels without evidence of neutrophils in the vessel treviño or Warthon's Jelly. The amniotic membranes have a single layer of cuboidal cells. The chorion is composed of eosinophilic decidualized cells with abundant cytoplasm. PRE OPERATIVE DIAGNOSIS distress REVIEW CODE CODE: I YONNY Moon MD 1157 46 PENDING; TEST PERFORMED ON MONDAYS AND THURSDAYS 47 NO GROUP B STREPTOCOCCI ISOLATED 48 01/30/12 LAB.EMM1 Deleted by Reflex Group [facility] 49 NO GROWTH: FINAL REPORT 50 QUERY: Is the Patient Fasting? Y 51 POSSIBLE UROGENITAL CONTAMINATION. 52 COLONY COUNT ! 5,000 - 10,000 CFU/ml Organism 1 ! MIXED URETHRAL BETTY 53 POSSIBLE UROGENITAL CONTAMINATION. 54 FORWARDED TO REFERENCE LABORATORY. 55 FORWARDED TO REFERENCE LABORATORY. 56 GRAM STAIN ! GRAM STAIN INDICATES NORMAL GENITAL BETTY ! FEW GR POS. BACILLI SUGGESTIVE OF LACTOBACILLUS SP. 57 GENITAL BETTY 58 NEGATIVE FOR CHLAMYDIA TRACHOMATIS BY DNA HYBRIDIZATION ASSAY. THIS TEST IS APPROVED FOR OCULAR AND UROGENITAL SITES ONLY. 59 NEGATIVE FOR NEISSERIA GONORRHOEAE BY DNA HYBRIDIZATION ASSAY. THIS METHOD IS APPROVED FOR UROGENITAL SITES ONLY. 60 The Centers for Disease Control and Prevention states blood lead levels less than 10 ug/dL in children have been associated with numerous adverse health effects. [facility] Guidelines: Blood lead levels in the range 5-9 ug/dL have been associated with adverse health effects in children aged 6 years and younger. Environmental Exposure: WHO <20 Occupational Exposure: OSHA Lead Std 40 Detection Limit=1 61 Nonimmune <0.91 Equivocal 0.91 - 1.09 Immune >1.09 Performed at: PATRICIA - [facility] [address] [id number] Materials Inspector: Matheus Franco MD, Phone: [phone] 62 PENDING; TEST PERFORMED ON MONDAYS AND THURSDAYS 63 HBsAg not detected; does not exclude the possibility of exposure to or early acute infections with HBV. 64 Values >=10.0 IU/mL are positive for IgG antibodies to rubella virus and are considered IMMUNE. 65 07/28/11 LAB.PLW Deleted by Reflex Group [facility] 66 COLONY COUNT ! 50,000 - 60,000 CFU/ml Organism 1 ! MIXED URETHRAL BETTY 67 POSSIBLE UROGENITAL CONTAMINATION. 68 Approximate Gestational Age and Total BHCG Range: 0.2 - 1 Week........................5-50 mIU/mL 1 - 2 Weeks.....................50-500 mIU/mL 2 - 3 Weeks..................100-5,000 mIU/mL 3 - 4 Weeks.................500-10,000 mIU/mL 4 - 5 Weeks...............1,000-50,000 mIU/mL 5 - 6 Weeks.............10,000-100,000 mIU/mL 6 - 8 Weeks.............15,000-200,000 mIU/mL 2 - 3 Months............10,000-100,000 mIU/mL Procedures Date CPT Code Description Status 12/17/2015 28286 Delivery Only Completed 12/17/2015 94507 Vaginal Delivery W/ Care Completed 12/17/2015 63404 Ligation/Transection Fallopian Tube(S During SX Completed 12/12/2015 29566 Echography Uterus Follow-Up Pervious Suspected Completed Abnormal 12/12/2015 40083 Antepartum Care 7 Or More Visits Completed 12/12/2015 79520 Non-Stress Test Completed 12/03/2015 61226 Antepartum Care 7 Or More Visits Completed 11/26/2015 17154 Echography Uterus Complete>14WKS. 0 Days Completed 11/26/2015 30290 Antepartum Care 7 Or More Visits Completed 11/11/2015 65289 Antepartum Care 7 Or More Visits Completed 11/11/2015 38785 Subcutaneous Or Intramuscular Injection Completed 10/29/2015 25226 Antepartum Care 7 Or More Visits Completed 10/22/2015 35350 Antepartum Care 7 Or More Visits Completed 10/09/2015 71123 Antepartum Care 7 Or More Visits Completed 09/11/2015 92929 Antepartum Care 4-6 Visits Completed 08/14/2015 76055 Antepartum Care 7 Or More Visits Completed 07/17/2015 70220 Antepartum Care 4-6 Visits Completed 07/15/2015 17608 Echography Uterus Complete>14WKS. 0 Days Completed 06/16/2015 03764 Antepartum Care 4-6 Visits Completed 05/29/2015 38490 Antepartum Care 4-6 Visits Completed 05/07/2015 49600 Echography Preg. Uterus Transvag. Real Time Image Completed Documentation 04/28/2015 37634 Antepartum Care 4-6 Visits Completed 02/28/2014 62955 Biopsy Vulva/Perineum One Lesion Completed 04/28/2012 45093 Care Completed 03/07/2012 93134 Delivery Only Completed 03/07/2012 39449 Delivery Routine Completed 02/22/2012 89058 Echography Uterus Complete>14WKS. 0 Days Completed 01/30/2012 24237 Non-Stress Test Completed 12/08/2011 44708 Echography Uterus Complete>14WKS. 0 Days Completed 10/12/2011 87137 Echography Uterus Complete>14WKS. 0 Days Completed 08/03/2011 84914 Ultrasound < 14 Weeks Single Or First Gestation Completed 11/13/2009 62366 Coploscopy, Cervix Include Upper Vagina\\ Adjacent Completed Vagina 10/16/2009 93916 Excise Benign Lesion 1.1-2CM Completed Scalp/Neck/Hands/Feet/Genitalia 09/19/2008 37503 Destruction Vulva Lesion(S) Extensive Completed 12/30/2006 92331 Colposcopy W/Biopsy (S) Cervix/Endocervical Curettage Completed 06/03/2005 77946 Destruction Vulva Lesion(S) Simple Completed 05/24/2005 12287 Destruction Vagina Lesion(S) Simple Completed 02/15/2005 50774 Colposcopy W/Biopsy (S) Cervix/Endocervical Curettage Completed Encounters Type Date Location Provider CPT E/M Dx Office Visit 09/21/2016 1:00p Main Office In Karl Groves M.D. 70714 N77.1 O92.13 Office Visit 07/21/2016 2:00p [place] [address] L02.215 N76.1 Office Visit 03/19/2016 10:00a Main Office Monica James [facility] 27648 F32.8 Office Visit 12/03/2015 9:15a Main Office In [place] Groves M.D. 11194 S36.32xA O09.893 W10.8xxA Z3A.37 Z3A.37 Office Visit 06/18/2015 11:00a Main Office In [place] Groves M.D. 70676 G43.901 R11.0 R11.10 Office Visit 09/26/2014 1:00p Main Office CRYSTAL Gamez,MSN,[place] 74404 V72.31 V76.2 780.79 293.83 Office Visit 02/12/2014 1:00p Main Office CRYSTAL Gamez,MSN,[place] 18933 V72.31 099.9 293.83 V76.2 Office Visit 08/09/2013 2:00p Main Office CRYSTAL Gamez,MSN,[place] 82808 789.9 626.4 293.83 Office Visit 05/31/2013 1:00p Main Office CRYSTAL Gamez,MSN,[place] 03027 626.4 625.3 293.83 Office Visit 01/26/2013 1:00p Main Office LeeanneLori buitragoMonica, [facility] 99641 616.10 788.1 Office Visit 05/30/2012 11:30a Main Office CRYSTAL Gamez,MSN,[place] 25471 648.44 Office Visit 12/01/2011 8:45a Main Office In Karl Groves M.D. 87871 558.9 Office Visit 08/16/2011 11:30a Main Office LeeanneLori buitragoMonica, [facility] 26501 616.10 728.71 Office Visit 07/15/2011 3:30p Main Office Veronique Hong RNC,MSN,[place] 10395 787.02 Office Visit 04/29/2011 2:30p Main Office Veronique Hong RNC,MSN,[place] 37422 616.10 Office Visit 12/10/2010 10:30a Main Office CRYSTAL Gamez,MSN,[place] 66745 V72.31 V76.2 V25.09 Office Visit 08/06/2010 11:00a Main Office Veronique Hong RNC,MSN,[place] 61275 V25.09 487.8 Office Visit 04/24/2010 10:00a Main Office Veronique Hong RNC,MSN,[place] 95892 V25.09 381.4 461.9 Office Visit 03/31/2010 1:30p Main Office Veronique Hong RNC,MSN,[place] 89547 V25.09 Office Visit 10/16/2009 10:00a Main Office CRYSTAL Gamez,MSN,[place] 66488 616.10 V72.31 V76.2 782.9 569.49 599.70 V65.45 Office Visit 09/16/2009 2:00p Main Office Veronique Hong RNC,MSN,[place] 93179 311 277.7 Office Visit 01/02/2009 8:45a Main Office CRYSTAL Gamez,MSN,[place] 57674 783.1 311 Office Visit 09/19/2008 1:00p Main Office CRYSTAL Gamez,MSN,[place] 58097 078.11 Office Visit 04/30/2008 9:00a Main Office Veronique Gely, RNC,MSN,[place] 86403 783.1 311 V04.81 Office Visit 07/06/2007 10:00a Main Office Veronique Hong RNC,MSN,[place] 70931 795.00 Office Visit 07/07/2006 1:30p Main Office Veronique Hong RNC,MSN,[place] 65368 795.01 795.05 784.0 796.2 Office Visit 04/12/2006 1:00p Main Office Veronique Hong RNC,MSN,[place] 52045 078.89 784.0 719.48 780.79 Office Visit 03/31/2006 9:30a Main Office Veronique Hong RNC,MSN,[place] 93811 311 277.7 Office Visit 03/11/2006 11:00a Main Office Yanci Mchughroy, [place] 30397 795.00 311 256.4 Office Visit 05/24/2005 1:30p Main Office CRYSTAL Gamez,MSN,[place] 38987 616.10 788.41 569.49 V04.81 Office Visit 12/02/2004 8:30a Main Office Veronique Hong RNC,MSN,[place] 63060 V72.31 V76.2 V25.09 Office Visit 10/07/2004 11:30a Main Office Veronique Hong RNC,MSN,[place] 47444 564.1 Office Visit 07/07/2004 9:30a Main Office Veronique Hong RNC,MSN,[place] 52924 462 Office Visit 10/10/2003 2:00p Main Office Veronique Hong RNC,MSN,[place] 71032 473.8 Office Visit 09/17/2003 11:30a Main Office Veronique Hong RNC,MSN,[place] 02725 462 Plan of Care Future Appointment(s):07/06/2017 10:00 am - In Karl Groves M.D. at Main [id number] 9:30 am - Imaging at Main Txjqro6506/24/2017 - In Karl Groves M.D.N92.0 Excessive and frequent menstruation with regular ksefhR87.9 Obesity, unspecified
--- NOTE | 2017-07-19 10:05 | UC ---
Throat Pain/Nasal Brett HPI - HPI Summary HPI Summary: sore throat x 1 day + cough , chest congestion , nasal congestion , pnd no fever, no chills - History of Current Complaint Chief Complaint: UCGeneralIllness Stated Complaint: ST/EAR ACHE/UPPER BACK PAIN Time Seen by Provider: 07/19/17 09:58 Hx Obtained From: Patient Hx Last Menstrual Period: 07/11/17 Onset/Duration: Gradual Onset, Lasting Days - 1, Still Present Severity: Moderate Cough: Nonproductive Associated Signs & Symptoms: Positive: Nasal Discharge. Negative: Dysphagia, FB Sensation, Drooling, Wheezing, Hoarseness, Sinus Discomfort, Fever, Vomiting , Rash - Allergies/Home Medications Allergies/Adverse Reactions: Allergies Allergy/AdvReac Type Severity Reaction Status Date / Time Levofloxacin [From Levaquin] Allergy See Comment Verified 07/19/17 09:39 PMH/Surg Hx/FS Hx/Imm Hx Previously Healthy: Yes Endocrine History: Diabetes Other History Of: Negative For: HIV, Hepatitis B, Hepatitis C, Anticoagulant Therapy - Surgical History Surgical History: Yes Surgery Procedure, Year, and Place: sinus surgery, x2 - Family History Known Family History: Positive: Cardiac Disease, Hypertension, Diabetes - Social History Alcohol Use: Occasionally Substance Use Type: None Smoking Status (MU): Former Smoker When Did the Patient Quit Smoking/Using Tobacco: 2011 - Immunization History Most Recent Influenza Vaccination: current 2016/2017 Review of Systems Constitutional: Negative Skin: Negative Eyes: Negative ENT: Sore Throat, Ear Ache, Nasal Discharge Respiratory: Cough Cardiovascular: Negative Gastrointestinal: Negative Is Patient Immunocompromised?: No All Other Systems Reviewed And Are Negative: Yes Physical Exam Triage Information Reviewed: Yes Appearance: Well-Appearing, No Pain Distress, Well-Nourished Vital Signs: Initial Vital Signs Temp 98.2 F 07/19/17 09:34 Pulse 58 07/19/17 09:34 Resp 18 07/19/17 09:34 BP 132/72 07/19/17 09:34 Pulse Ox 100 07/19/17 09:34 Vital Signs Reviewed: Yes Eye Exam: Normal Eyes: Positive: Conjunctiva Clear ENT: Positive: Normal ENT inspection, Hearing grossly normal, Pharynx normal, Nasal congestion, TMs normal Neck: Positive: Supple, Nontender, No Lymphadenopathy Respiratory: Positive: Chest non-tender, Lungs clear, Normal breath sounds, No respiratory distress Cardiovascular: Positive: RRR, No Murmur, Pulses Normal Skin Exam: Normal Throat Pain/Nasal Course/Dx - Differential Dx/Diagnosis Provider Diagnoses: viral illness Discharge - Discharge Plan Condition: Stable Disposition: HOME Patient Education Materials: Viral Syndrome (ED) Referrals: Cristina Gutierrez MD [Primary Care Provider] - If Needed
== END 2017-07-19 10:05 | disposition home or self-care (01) ==
LOC: UCCORT 09:11
DX: B34.9 Viral infection, unspecified (principal); E11.9 Type 2 diabetes mellitus without complications; Z88.1 Allergy status to other antibiotic agents; Z87.891 Personal history of nicotine dependence
CPT/HCPCS: 99211; G0463

== ENCOUNTER 2018-05-27 16:29 | Emergency (ER) | payer OTHER ==
[2018-05-27 17:18] VITALS: BP 128/66
--- NOTE | 2018-05-27 17:43 | UC ---
Respiratory Complaint HPI - HPI Summary HPI Summary: Pt c/o cough and bilateral ear ache. Pt finished z-pac 1 week ago and nopw c/o of continued cough. Pt was given, zpac, tessalon perles and albuterol INH. Pt has been using all rX's. - History of Current Complaint Chief Complaint: UCRespiratory Stated Complaint: EAR PAIN,SORE THROAT Time Seen by Provider: 05/27/18 17:19 Hx Obtained From: Patient Hx Last Menstrual Period: 05/27/18 ?: No Onset/Duration: Sudden Onset, Lasting Days, Still Present Timing: Intermittent Episodes Severity Initially: Mild Severity Currently: Mild Pain Intensity: 0 Character: Cough: Nonproductive Aggravating Factors: Exertion, Deep Breaths, Recumbent Position Alleviating Factors: Nothing Associated Signs And Symptoms: Positive: Negative - Risk Factors Pulmonary Embolism Risk Factors: Negative Cardiac Risk Factors: Negative Pseudomonas Risk Factors: Negative Tuberculosis Risk Factors: Negative - Allergies/Home Medications Allergies/Adverse Reactions: Allergies Allergy/AdvReac Type Severity Reaction Status Date / Time levofloxacin [From Levaquin] Allergy Agitation Verified 05/27/18 17:15 Home Medications: Home Medications FLUoxetine CAP* [Prozac CAP*] 20 mg PO DAILY 05/27/18 [History Confirmed ] PMH/Surg Hx/FS Hx/Imm Hx Previously Healthy: Yes Other History Of: Negative For: HIV, Hepatitis B, Hepatitis C, Anticoagulant Therapy - Surgical History Surgical History: Yes Surgery Procedure, Year, and Place: sinus surgery, x2, tubal ligation - Family History Known Family History: Positive: Cardiac Disease, Hypertension, Diabetes - Social History Occupation: Employed Full-time Lives: With Family Alcohol Use: Rare Substance Use Type: None Smoking Status (MU): Former Smoker Have You Smoked in the Last Year: No When Did the Patient Quit Smoking/Using Tobacco: 2011 - Immunization History Most Recent Influenza Vaccination: current Review of Systems All Other Systems Reviewed And Are Negative: Yes Constitutional: Positive: Negative Skin: Positive: Negative Eyes: Positive: Negative ENT: Positive: Ear Ache Respiratory: Positive: Cough Cardiovascular: Positive: Negative Gastrointestinal: Positive: Negative Genitourinary: Positive: Negative Motor: Positive: Negative Neurovascular: Positive: Negative Musculoskeletal: Positive: Negative Neurological: Positive: Negative Psychological: Positive: Negative Is Patient Immunocompromised?: No Physical Exam Triage Information Reviewed: Yes Appearance: Well-Appearing Vital Signs: Initial Vital Signs Temp 97.8 F 05/27/18 17:12 Pulse 82 05/27/18 17:12 Resp 20 05/27/18 17:12 BP 128/66 05/27/18 17:12 Pulse Ox 99 05/27/18 17:12 Vital Signs Reviewed: Yes Eye Exam: Normal ENT: Positive: TM bulging - bilateral Dental Exam: Normal Neck exam: Normal Respiratory Exam: Normal Cardiovascular Exam: Normal Musculoskeletal Exam: Normal Neurological Exam: Normal Psychological Exam: Normal Skin Exam: Normal UC Diagnostic Evaluation - Laboratory O2 Sat by Pulse Oximetry: 99 Respiratory Course/Dx - Differential Dx/Diagnosis Differential Diagnosis/HQI/PQRI: Bronchitis, Other - cough Provider Diagnoses: post viral cough. ear ache bilateral Discharge - Sign-Out/Discharge Documenting (check all that apply): Patient Departure All imaging exams completed and their final reports reviewed: No Studies - Discharge Plan Condition: Stable Disposition: HOME Prescriptions: Cetirizine HCl/Pseudoephedrine [Zyrtec-D Tablet] 1 each PO Q12HR #10 tab.er.12h predniSONE [Prednisone 20 MG TAB] 20 mg PO DAILY #4 tablet Patient Education Materials: Acute Cough (ED) Referrals: Cristina Gutierrez MD [Primary Care Provider] - If Needed - Billing Disposition and Condition Condition: STABLE Disposition: Home
== END 2018-05-27 17:45 | disposition home or self-care (01) ==
LOC: UCCORT 16:29
DX: R05 Cough (principal); H92.03 Otalgia, bilateral; Z88.1 Allergy status to other antibiotic agents; Z87.81 Personal history of (healed) traumatic fracture
CPT/HCPCS: 99212; G0463

== ENCOUNTER 2018-06-30 14:17 | Emergency (ER) | payer OTHER ==
[2018-06-30 14:53] VITALS: BP 127/78
--- NOTE | 2018-06-30 15:04 | UC ---
UC General HPI - HPI Summary HPI Summary: lump under R side of jaw for about 1 month. Over the past 1-2 days, the area became tender and more swollen. denies dental pain and has had a dental visit recently including xrays. - History of Current Complaint Chief Complaint: UCGeneralIllness Stated Complaint: LUMP ON RT SIDE OF JAW/JAW PAIN Time Seen by Provider: 06/30/18 14:48 Hx Obtained From: Patient Hx Last Menstrual Period: 06/23/18 Pain Intensity: 2 Aggravating: touch and area tender when opens and closes her mouth. Associated Signs & Symptoms: Positive: Other - no sore throat. Negative: Fever , Headache - Allergy/Home Medications Allergies/Adverse Reactions: Allergies Allergy/AdvReac Type Severity Reaction Status Date / Time levofloxacin [From Levaquin] Allergy Agitation Verified 05/27/18 17:15 PMH/Surg Hx/FS Hx/Imm Hx Psychological History: Depression Other History Of: Negative For: HIV, Hepatitis B, Hepatitis C, Anticoagulant Therapy - Surgical History Surgical History: Yes Surgery Procedure, Year, and Place: sinus surgery, x2, tubal ligation - Family History Known Family History: Positive: Cardiac Disease, Hypertension, Diabetes - Social History Alcohol Use: Rare Substance Use Type: None Smoking Status (MU): Former Smoker Have You Smoked in the Last Year: No When Did the Patient Quit Smoking/Using Tobacco: 2011 - Immunization History Most Recent Influenza Vaccination: current 2016/2017 Vaccination Up to Date: Yes Review of Systems All Other Systems Reviewed And Are Negative: Yes Constitutional: Positive: Negative Skin: Positive: Negative Eyes: Positive: Negative ENT: Positive: Negative Respiratory: Positive: Negative Cardiovascular: Positive: Negative Gastrointestinal: Positive: Negative Genitourinary: Positive: Negative Motor: Positive: Negative Neurovascular: Positive: Negative Musculoskeletal: Positive: Negative Neurological: Positive: Negative Psychological: Positive: Negative Physical Exam Triage Information Reviewed: Yes Appearance: Well-Appearing Vital Signs: Initial Vital Signs Temp 98.1 F 06/30/18 14:47 Pulse 87 06/30/18 14:47 Resp 17 06/30/18 14:47 BP 127/78 06/30/18 14:47 Pulse Ox 98 06/30/18 14:47 Vital Signs Reviewed: Yes Eyes: Positive: Conjunctiva Clear ENT: Positive: Pharynx normal, TMs normal, Uvula midline, Other - Non fixed not fluctuant tender area with mild swelling below R lateral jaw. no parotid or salivary gland swelling or tenderness. Negative: Nasal congestion, Nasal drainage, Trismus, Muffled voice, Hoarse voice Dental: Negative: Percussion Tenderness @, Gross Decay/Caries @, Dental Fracture @, Abscess @, Cellulitis @ Neck: Positive: Supple, Nontender, No Lymphadenopathy Respiratory: Positive: Lungs clear, Normal breath sounds Cardiovascular: Positive: RRR, No Murmur Abdomen Description: Positive: Nontender, No Organomegaly, Soft Bowel Sounds: Positive: Present Musculoskeletal: Positive: ROM Intact Neurological: Positive: Alert Psychological: Positive: Age Appropriate Behavior Skin Exam: Normal Skin: Negative: Rashes Course/Dx - Course Course Of Treatment: no concern for abscess or sialoadenitis. no overt dental issues. most c/w adenoapthy thus will tx with amoxicilllin and close f/u. f/u to resolution stressed to pt. - Diagnoses Provider Diagnosis: Adenopathy Discharge - Sign-Out/Discharge Documenting (check all that apply): Patient Departure All imaging exams completed and their final reports reviewed: No Studies - Discharge Plan Condition: Stable Disposition: HOME Prescriptions: Amoxicillin 875 mg PO BID 7 Days #14 tablet Patient Education Materials: Lymphadenopathy (ED) Referrals: Cristina Gutierrez MD [Primary Care Provider] - 7 Days - Billing Disposition and Condition Condition: STABLE Disposition: Home
== END 2018-06-30 15:09 | disposition home or self-care (01) ==
LOC: UCCORT 14:17
DX: R59.9 Enlarged lymph nodes, unspecified (principal); Z88.1 Allergy status to other antibiotic agents; Z87.891 Personal history of nicotine dependence
CPT/HCPCS: 99212; G0463